=== PATIENT | female | born 1985 | race Caucasian/White ===

== ENCOUNTER 2018-06-04 07:50 | Inpatient (IN) | payer BC ==
[~2018-06-04] VITALS: Ht 160.1 cm; Wt 95.5 kg
[~2018-06-04 07:50] MED LIST: MOTRIN 600600 MG/TAB PO; PERCOCET 325 MG1 TA2 PO; PRENATAL1 TA7 PO
[2018-06-07] VITALS (19 sets, daily range): BP systolic 101–123; BP diastolic 55–78; PULSE 60–73; TEMP 97.6–98.3
--- NOTE | 2018-06-07 05:40 | NUR ---
Ambulatory to unit for scheduled repeat C/S, accompanied by spouse.
[2018-06-07] MEDS ORDERED: TUMS ULTRA ST1000 MG PO (06:27)
[2018-06-07 07:08] LABS: BASO % 0.2 % (0.0-2.0); EOS % 0.4 % (0-4.0); GRAN # 6.1 (1.4-6.5); GRAN % 59.6 % (42.2-75.2); HEMOGLOBIN 10.2 g/dl (12.5-16.0); LYMPH # 3.1 (1.2-3.4); LYMPH % 30.8 % (20.0-51.0); MEAN CELL VOLUME 81 fl (80.0-100.0); MEAN CORPUSCULAR HEMOGLOBIN 25 pg (27.0-31.0); MEAN CORPUSCULAR HGB CONC 31 g/dl (33.0-37.0); MEAN PLATELET VOLUME 10.2 fl (7.4-10.4); MONO # 0.9 (0.1-0.6); MONO % 8.4 % (1.7-9.3); PLATELET COUNT 261 K/mm3 (130-400); RED BLOOD COUNT 4.03 M/mm3 (4.10-5.30); REDCELL DISTRIBUTION WIDTH-CV 15.9 % (11.5-14.5)
[2018-06-07 07:14] LABS: HEMATOCRIT 32.6 % (37.0-47.0)
[2018-06-07] MEDS ORDERED: MOTRIN 800800 MG/TAB PO (08:21)
[2018-06-07] MEDS ORDERED: PERCOCET 325 MG1 TA2 PO (08:21)
--- NOTE | 2018-06-07 13:00 | NUR ---
Pericare done, underwear and pad on, patient assisted to wheelchair and to nursery to visit baby.
--- NOTE | 2018-06-07 14:00 | NUR ---
Pt with emesis after transferring from wheelchair to bed. Urine output 140ml-ALVINO Corral notified Dr Wheatley regarding decreased UOP and LR hung. Zofran IV given for nausea. Pt nibbling on crackers, family at bedside.
--- NOTE | 2018-06-07 16:45 | NUR ---
Patient sits on edge of bed, ambulates to bathroom with standby assist, serrano catheter removed and patient tolerates well. Pericare done, new underwear/gown on. Abdominal binder placed.
[2018-06-08 03:00] VITALS: BP 116/62; PULSE 70; TEMP 98.7
[2018-06-08 07:50] VITALS: BP 121/69; PULSE 72; TEMP 98.3
--- NOTE | 2018-06-08 11:53 | NUR ---
Mother was sleeping, was not able to visit the room.
[2018-06-08 15:00] VITALS: BP 135/64; PULSE 68; TEMP 98
[2018-06-08 21:00] VITALS: BP 130/77; PULSE 73; TEMP 97.3
[2018-06-09 06:42] VITALS: BP 126/65; PULSE 76; TEMP 97.2
[2018-06-09 16:30] VITALS: BP 131/67; PULSE 70; TEMP 98.5
--- NOTE | 2018-06-09 18:46 | NUR ---
Pt in nursery feeding . Discussed POC for the night. Denies pain at this time. No further needs.
--- NOTE | 2018-06-09 18:51 | NUR ---
Pt declined bedside report as she was in nursery visiting baby. Report received from off going RN, Elodia DE OLIVEIRA. Care taken over by this RN.
[2018-06-09 20:33] VITALS: BP 126/75; PULSE 59; TEMP 97.7
[2018-06-10 07:45] VITALS: BP 130/75; PULSE 71; TEMP 98.3
--- NOTE | 2018-06-10 10:47 | NUR ---
Initial visit; Mom thanked Noteman for offering congratulations and God's blessings for the of her daughter. Noteman thanked family for choosing [facility].
== END 2018-06-10 15:45 | disposition home or self-care (01) | DRG 788 ==
LOC: LDR 07:50 → OB 06-07 05:35 → LDR 06-07 06:22 → OB 06-10 15:45
PROVIDERS: ADMIT Obstetrics & Gynecology
PROC: 10D00Z1 Extraction of Products of Conception, Low, Open Approach (ICD-10-PCS; principal; 2018-06-07)
DX: O34.211 Maternal care for low transverse scar from previous cesarean delivery (principal); N85.8 Other specified noninflammatory disorders of uterus; Z3A.40 40 weeks gestation of pregnancy; Z37.0 Single live birth; O99.02 Anemia complicating childbirth; D64.9 Anemia, unspecified; O24.429 Gestational diabetes mellitus in childbirth, unspecified control
CPT/HCPCS: J0690; J1885; J2270; J2405; J2590; J7120

== ENCOUNTER → 2018-06-11 | Outpatient (CLI) | payer BC ==
[~2018-06-11] MED LIST changes: +MOTRIN 800800 MG/TAB PO; +TUMS ULTRA ST1000 MG PO
--- NOTE | 2018-06-11 11:06 | NUR ---
Anastasiia Arnjeanna into walk-in clinic with 5 day old Priscilla for evaluation and weight check. 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 Anastasiia began pumping shortly after delivery and Priscilla was able start going to the breast the afternoon of 06/09/18. While in the hospital breastfed, then supplemented feeds with EBM. With a max feeding amount of [address] ml [address] Wayne. Anastasiia has continued this feeding pattern since discharge on 06/10/18. Anastasiia reports Priscilla has has atleast 8 feedings, 2 transitional stools, and at least 6 wet diapers in last 24 hours. Anastasiia states she is pumping after each feeding and is supplementing 15-30 ml EBM after each feed based on Priscilla's cues. Priscilla's prefeed weight at the clinic today was 8 # 3 oz 3714 g. She then nursed for approx 10 min on the left breast and took 26 ml. LC assist with latch to right breast, but no intake noted. Priscilla noted to sound very stuffy and appeared to tire quickly during the feeding possibly r/t concern of the right nare occlusion. After BF, Priscilla took 20 ml EBM via bottle but noted to be very sleepy during feeding and needing much encouragement. POC: Continue to feed ad jairon and supplement approx 30 ml after feeds based on cues. Pump after feeds to have EBM for supplemental feeds. [place] with alternate pump shield sizes to see if it will decrease pain/sores associated with pumping. Attend f/u ENT appointment for possible right nare occlusion on 06/14/18 and f/u with Dr. Wayne on 06/12/18. Anticipate return to clinic.
== END ==
LOC: LAC 10:00
DX: Z39.1 Encounter for care and examination of lactating mother (principal); Z71.89 Other specified counseling

== ENCOUNTER → 2018-06-25 | Outpatient (CLI) | payer BC ==
--- NOTE | 2018-06-25 12:40 | NUR ---
Pt, Anastasiia Torres, presents for walk-in clinic with 2.5 week old baby girl, Priscilla Torres, for a evaluation because Priscilla has nasal congestion that makes difficult. Priscilla was born on [birth year] by c/section and weighed 8#9.9oz. She has been evaluated by [facility] for her right nare air flow restriction and pt reports it is patent but with a very narrow opening which still makes and breathing difficult to coordinate. Because of nasal restrictions Priscilla is essentially fed 2.5-3 oz EBM by bottle every 2-3 hours. She has no difficulty drinking from the bottle. Pt is able to collect 4-5oz BM pumping every 4 hours. Pt works well with Priscilla with latching, she just does not stay latched for more than a few minutes at at time. AFter nursing on each breast (on and off frequently) it is observed that Priscilla has a total weight gain of 46gms. Pt provides EBM by bottle after, amount unknown by this LC. POC: continue working with a few times a day, but to conserve energy and ensure weight gain, continue with EBM by bottle each feeding as well. F/U: walk in clinic as desired. Questions invited and answered.
== END ==
LOC: LAC 10:21
DX: Z39.1 Encounter for care and examination of lactating mother (principal); Z71.89 Other specified counseling